=== PATIENT | female | born 1960 | race Two or more races ===

== ENCOUNTER → 2020-03-13 | Emergency (ER) | payer OTHER ==
[~2020-03-13] VITALS: Ht 167.6 cm; Wt 77.1 kg
[~2020-03-13] MED LIST: BAYER ASPIRIN325 MG PO; DUI500 PO; PERCOCET 5-3251 EACH PO; WALKER; WHEELCHAIR; ZESTRIL20 MG PO
== END | disposition left against medical advice (07) ==
LOC: ER 17:04
DX: S82.51XA Displaced fracture of medial malleolus of right tibia, initial encounter for closed fracture (principal); S82.421A Displaced transverse fracture of shaft of right fibula, initial encounter for closed fracture; W10.8XXA Fall (on) (from) other stairs and steps, initial encounter; Y93.89 Activity, other specified; Y92.098 Other place in other non-institutional residence as the place of occurrence of the external cause; Y99.8 Other external cause status

== ENCOUNTER 2020-03-14 07:00 | Day surgery (SDC) | payer OTHER ==
[~2020-03-14] VITALS: Ht 165.1 cm; Wt 73.5 kg
[~2020-03-14 07:00] MED LIST changes: -BAYER ASPIRIN325 MG PO; -DUI500 PO; -PERCOCET 5-3251 EACH PO; -WALKER; -WHEELCHAIR
[2020-03-14] MEDS ORDERED: PERCOCET 5-3251 EACH PO (18:03)
[2020-03-14] MEDS ORDERED: BAYER ASPIRIN325 MG PO (18:03)
[2020-03-14] MEDS ORDERED: DUI500 PO (18:03)
[2020-03-14] MEDS ORDERED: WHEELCHAIR (18:05)
[2020-03-14] MEDS ORDERED: WALKER (18:07)
== END 2020-03-14 13:00 | disposition home or self-care (01) ==
LOC: CIR.AMB 07:00 → ER 07:50 → CIR.AMB 09:00 → O/R 12:20 → SEC-K 12:20 → ER 12:20 → CIR.AMB 13:00 → SEC-K 17:13 → SURH 17:13 → EDSTATUS 18:00 → O/R 03-15 09:03 → SURH 03-15 09:03
PROVIDERS: ATTEND Orthopaedic Surgery
DX: S82.851A Displaced trimalleolar fracture of right lower leg, initial encounter for closed fracture (principal); S93.421A Sprain of deltoid ligament of right ankle, initial encounter; Z20.828 Contact with and (suspected) exposure to other viral communicable diseases
CPT/HCPCS: 27823; 20902; 27695; C1776